=== PATIENT | female | born 1975 | race Caucasian/White ===

== ENCOUNTER 2021-10-26 09:10 | Outpatient (CLI) | payer OTHER, SELFPAY ==
--- NOTE | ~2021-10-26 | MM_ITS ---
EXAMINATION: MM screening [facility] BI w [facility]am[facility] HISTORY: Screening mammogram TECHNIQUE: Craniocaudal and mediolateral oblique 3-D tomosynthesis images were obtained and synthetic 2-D images were generated. CAD analysis was submitted and interpreted. COMPARISON: 08/29/2018 BREAST PARENCHYMAL COMPOSITION: There are scattered areas of fibroglandular density. FINDINGS: There is no evidence of suspicious mass, calcification, or architectural distortion to sugg est malignancy in either breast. There has been no suspicious interval change. IMPRESSION: 1. No mammographic evidence of malignancy. 2. Recommend routine screening mammography in one year. BI-RADS Category 1: Negative Reviewed, dictated and finalized at location A. EOLOGIST
== END 2021-10-26 09:11 | disposition home or self-care (01) ==
LOC: ANHIMG 09:12
PROVIDERS: PCP Family Medicine; Visit Provider Family Medicine
DX: Z12.31 Encounter for screening mammogram for malignant neoplasm of breast (principal)
CPT/HCPCS: 77063; 77067

== ENCOUNTER 2023-01-07 08:57 | Outpatient (CLI) | payer OTHER, SELFPAY ==
--- NOTE | ~2023-01-07 | MM_ITS ---
EXAMINATION: MM screening [facility] BI w yamilex HISTORY: Screening TECHNIQUE: Craniocaudal and mediolateral oblique 3-D tomosynthesis images were obtained and synthetic 2-D images were generated. CAD analysis was submitted and interpreted. COMPARISON: Comparison to multiple prior studies sequentially, with oldest reviewed study dated 06/2018. BREAST PARENCHYMAL COMPOSITION: There are scattered areas of fibroglandular density. FINDINGS: There is no evidence of suspicious mass, calcification, or architectural distortion to sugg est malignancy in either breast. There has been no suspicious interval change. IMPRESSION: 1. No mammographic evidence of malignancy. 2. Recommend routine screening mammography in one year. BI-RADS Category 1: Negative Reviewed, dictated and finalized at location A.
== END 2023-01-07 08:58 | disposition home or self-care (01) ==
LOC: ANHIMG 09:00
PROVIDERS: PCP Family Medicine; Visit Provider Family Medicine
DX: Z12.31 Encounter for screening mammogram for malignant neoplasm of breast (principal)
CPT/HCPCS: 77063; 77067

== ENCOUNTER 2023-02-20 16:09 | Outpatient (CLI) | payer OTHER, SELFPAY ==
[2023-02-20 18:56] LABS: Kit Draw Collected
== END 2023-02-20 16:10 | disposition home or self-care (01) ==
LOC: ANHGOSHLAB 16:11
PROVIDERS: PCP Family Medicine; Visit Provider Family Medicine
DX: K21.00 Gastro-esophageal reflux disease with esophagitis, without bleeding (principal); E55.9 Vitamin D deficiency, unspecified; Z79.899 Other long term (current) drug therapy
CPT/HCPCS: 36415

== ENCOUNTER 2023-06-06 01:26 | Day surgery (SDC) | payer OTHER, SELFPAY ==
[2023-05-24 15:05] VITALS: BMI 51.5
[2023-06-06 08:15] VITALS: BP 130/106; PULSE 99; RESP 18; TEMP 36.6; O2SAT 99; BMI 52.3
--- NOTE | 2023-06-06 08:24 | PM.HPGS ---
History of Present Illness History of Present Illness Consent: Risks, benefits, and alternatives have been discussed and questions answered. Patient agrees to proceed with procedure. Chief complaint: neoplasm screening Narrative: Tracie Orantes is a 48 year old female Presents for screening colonoscopy. Patient's current weight appetite and bowel movements are normal. She denies abdominal pain. She has had no bleeding. Family history is noncontributory. Review of Systems Review of Systems: Review of systems noncontributory. [facility] Past Medical History Medical History Iron deficiency anemia Neoplasm of uncertain behavior of skin Obesity Polyp of cervix uteri Family History Family History Father Depression Mother Patient's mother is in good health Osteoporosis Grandparent Family history of elevated blood lipids Family history of cardiovascular disease Cerebrovascular accident Osteoporosis Social History Social History Smoking status: Never smoker Alcohol intake: current Drinks per week: 5 Substance use: never Substance use type: does not use Lack of Transportation: No Lack of Food: Never True Current Housing: I Have Housing Concerned About Future Housing: No Difficulty Paying Gas/Electric Bills: No Difficulty Paying for Meds: No Currently Unemployed: No Education: Bachelor's Degree Difficulty w/ Childcare or Family Care: No Living arrangements: with family Spiritual care concerns: No Meds Home Medications and Allergies Home Medications Medication Instructions Recorded Confirmed Type omeprazole magnesium 20 mg 40 mg PO DAILY 04/18/22 06/06/23 History tablet,delayed release (Prilosec OTC) desogestrel-e.estradiol 0.15 1 tablet PO DAILY #84 tabs 11/22/22 06/06/23 Rx mg-0.02 mg(21)/e.estrad 0.01 mg(5) tablet (Greg (28)) spironolactone 50 mg tablet 50 mg PO QAM #90 tabs 11/29/22 06/06/23 Rx hydroxyzine pamoate 25 mg capsule 25 mg PO DAILY 02/20/23 06/06/23 History cholecalciferol (vitamin D3) 1,250 1,250 mcg PO WEEKLY #14 caps 02/21/23 06/06/23 Rx mcg (50,000 unit) capsule ascorbic acid (vitamin C) 500 mg 500 mg PO DAILY 05/24/23 06/06/23 History tablet (Vitamin C) metformin 500 mg tablet,extended 1,000 mg PO BID 05/24/23 06/06/23 History release 24 hr Allergies Allergy/AdvReac Type Severity Reaction Status Date / Time No Known Allergies Allergy Verified 06/06/23 08:13 Vital Signs Vital Signs - 24 hr 06/06/23 08:15 Temperature 97.8 F Pulse Rate 99 Respiratory Rate 18 Blood Pressure 130/106 H Pulse Oximetry 99 Oxygen Delivery Room Air Exam Narrative: Physical exam reveals patient be alert. Vital signs stable. HEENT exam is unremarkable. Patient is anicteric. Lungs are clear to auscultation and percussion. Heart is without murmur or extra sounds. Abdomen Is obese. bowel sounds are present soft nontender with no organomegaly. Digital external rectal exam is normal. Assessment and Plan Assessment and plan (1) Encounter for screening colonoscopy: Code(s): Z12.11 - Encounter for screening for malignant neoplasm of colon Status: Acute Assessment and Plan: Patient presents today for screening colonoscopy. She appears to be at average risk for colon polyps. Further recommendations may be given after endoscopy.
[2023-06-06] MEDS: LACTATED RINGERS 1,000 ML 150 ML IV CONT (08:31)
--- NOTE | 2023-06-06 08:48 | WPDANESEPPF ---
Anes - Initial Pre Proc Eval Procedure: Operation Date: 06/06/23 09:30 Proposed Procedures p Screening Colonoscopy - Woody Jacobsen MD Date/Time: 06/06/23 08:48 Surgeon: Woody Jacobsen MD Pre Op Diagnosis: neoplasm screening Patient Data Age: 48 Gender: F Height: 1.6 m Weight: 134 kg Last Vital Signs Temp 97.8 F 06/06/23 08:15 Pulse 99 06/06/23 08:15 Resp 18 06/06/23 08:15 BP 130/106 H 06/06/23 08:15 Pulse Ox 99 06/06/23 08:15 O2 Del Method Room Air 06/06/23 08:15 Allergies Allergy/AdvReac Type Severity Reaction Status Date / Time No Known Allergies Allergy Verified 06/06/23 08:13 Home Medications Medication Instructions Recorded Confirmed Type omeprazole magnesium 20 mg 40 mg PO DAILY 04/18/22 06/06/23 History tablet,delayed release (Prilosec OTC) desogestrel-e.estradiol 0.15 1 tablet PO DAILY #84 tabs 11/22/22 06/06/23 Rx mg-0.02 mg(21)/e.estrad 0.01 mg(5) tablet (Greg (28)) spironolactone 50 mg tablet 50 mg PO QAM #90 tabs 11/29/22 06/06/23 Rx hydroxyzine pamoate 25 mg capsule 25 mg PO DAILY 02/20/23 06/06/23 History cholecalciferol (vitamin D3) 1,250 1,250 mcg PO WEEKLY #14 caps 02/21/23 06/06/23 Rx mcg (50,000 unit) capsule ascorbic acid (vitamin C) 500 mg 500 mg PO DAILY 05/24/23 06/06/23 History tablet (Vitamin C) metformin 500 mg tablet,extended 1,000 mg PO BID 05/24/23 06/06/23 History release 24 hr Patient hx anesthesia problems: none Family hx anesthesia problems: none Results Review: All pre-operative results and documents have been reviewed as part of the pre-operative evaluation. [facility] Past Medical History Medical History Iron deficiency anemia Neoplasm of uncertain behavior of skin Obesity Polyp of cervix uteri Family History Family History Father Depression Mother Patient's mother is in good health Osteoporosis Grandparent Family history of elevated blood lipids Family history of cardiovascular disease Cerebrovascular accident Osteoporosis Social History Social History Smoking status: Never smoker Alcohol intake: current Drinks per week: 5 Substance use: never Substance use type: does not use Lack of Transportation: No Lack of Food: Never True Current Housing: I Have Housing Concerned About Future Housing: No Difficulty Paying Gas/Electric Bills: No Difficulty Paying for Meds: No Currently Unemployed: No Education: Bachelor's Degree Difficulty w/ Childcare or Family Care: No Living arrangements: with family Spiritual care concerns: No Anes - Eval Final PreProcedure Day of Procedure 06/06/23 08:48 Patient weight: super morbidly obese Heart: regular rate and rhythm Lungs: clear to auscultation Airway: Mallampati scale class II Neurological: alert and oriented Last oral intake: >/= 8 hours ASA classification: III Emergent: no Anesthetic plan: proceed Anesthesia type and monitoring: general GIVS and standard monitoring Results Review: All pre-operative results and documents have been reviewed as part of the pre-operative evaluation. Informed Consent: The patient's anesthetic plan and its attendant risks and benefits were discussed with the patient/family/POA. Questions were solicited and answers provided to the satisfaction of the patient/family/POA.
[2023-06-06] MEDS: SIMETHICONE ORAL SUSPENSION 20 MG/0.3 ML 30 ML BOTTLE 0.6 ML IRRIGATION (09:02)
[2023-06-06 09:10] VITALS: BP 126/89; PULSE 77; RESP 19; O2SAT 99
[2023-06-06 09:20] VITALS: BP 134/93; PULSE 73; RESP 18; O2SAT 99
[2023-06-06 09:30] VITALS: BP 141/89; PULSE 70; RESP 18; O2SAT 99
== END 2023-06-06 09:38 | disposition home or self-care (01) ==
PROVIDERS: PCP Family Medicine; Visit Provider Internal Medicine Gastroenterology
PROC: 0DJD8ZZ Inspection of Lower Intestinal Tract, Via Natural or Artificial Opening Endoscopic (ICD-10-PCS; CPT 45378; principal; 2023-06-06 09:30)
DX: Z12.11 Encounter for screening for malignant neoplasm of colon (principal); D12.2 Benign neoplasm of ascending colon; K64.8 Other hemorrhoids; E66.01 Morbid (severe) obesity due to excess calories; Z68.43 Body mass index [BMI] 50.0-59.9, adult
CPT/HCPCS: 45385; 88305; J7120

== ENCOUNTER 2024-01-30 14:25 | Outpatient (CLI) | payer BC, SELFPAY ==
--- NOTE | ~2024-01-30 | MM_ITS ---
EXAMINATION: MM screening [facility] BI w [facility]am[facility] HISTORY: Screening mammogram TECHNIQUE: Craniocaudal and mediolateral oblique 3-D tomosynthesis images were obtained and synthetic 2-D images were generated. CAD analysis was submitted and interpreted. COMPARISON: 01/07/2023, 10/26/2021 bilateral screening mammogram examinations BREAST PARENCHYMAL COMPOSITION: There are scattered areas of fibroglandular density. FINDINGS: There is no evidence of suspicious mass, calcification, or architectural distortion to sugg est malignancy in either breast. There has been no suspicious interval change. IMPRESSION: 1. No mammographic evidence of malignancy. 2. Recommend routine screening mammography in one year. BI-RADS Category 1: Negative Reviewed, dictated and finalized at location A.
== END 2024-01-30 14:26 | disposition home or self-care (01) ==
PROVIDERS: PCP Family Medicine; Visit Provider Obstetrics & Gynecology Gynecology
DX: Z12.31 Encounter for screening mammogram for malignant neoplasm of breast (principal)
CPT/HCPCS: 77063; 77067

== ENCOUNTER 2025-03-17 14:16 | Outpatient (CLI) | payer OTHER, SELFPAY ==
--- NOTE | ~2025-03-17 | MM_ITS ---
EXAMINATION: MM screening evan BI w yam[facility]x HISTORY: Screening TECHNIQUE: Craniocaudal and mediolateral oblique 3-D tomosynthesis images were obtained and synthetic 2-D images were generated. CAD analysis was submitted and interpreted. COMPARISON: Comparison to multiple prior studies sequentially, with oldest reviewed study dated 01/29. BREAST PARENCHYMAL COMPOSITION: Not dense: There are scattered areas of fibroglandular density. FINDINGS: There is no evidence of suspicious mass, calcification, or architectural distortion to sugg est malignancy in either breast. There has been no suspicious interval change. IMPRESSION: 1. No mammographic evidence of malignancy. 2. Recommend routine screening mammography in one year. BI-RADS Category 1: Negative Reviewed, dictated and finalized at location A.
--- OUTSIDE RECORDS SUMMARY | 2025-03-17 14:20 | XMS_ITS | Data Portability ---
Author Organization [employer] [facility] [place], Medical Address [address] [place] [id number] Care Team Providers Care Twenty One Dealer Name Role Phone BRADEN ZAPATA Primary Care Provider LANA MARTINES Cylinder Die Machine Helper [phone] Assessment Encounter Date Assessment Date Assessment LastModified by Organization Details LastModified Time 01/07/2025 01/07/2025 Plan to continue with Semaglutide at max dose of 90u. If weight loss does not progress as expected then we discussed potentially switching to Tirzepatide at next visit. [email or web address] Not available 01/07/2025 11:08:51 01/14/2025 01/14/2025 49 y/o F reports for [facility] nutrition session Hx of lipidema, Labs show How would you sum up your goal/why do you want to see a men's garment fitter? Was recently diagnosed with lipidema - wants answers and nothing has worked for her for a long period of time. Initial goal is losing maybe 10% of her body weight. Getting below 200. 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 10-12 yrs ago lost 25-35 lbs - felt like no matter what she did she couldnt lose more weight. Caffeine/Alc - drinks coffee - 1 to 2 cups, that is most of her caffeine but might have iced tea at lunch No soda, switches to water after coffee in the AM Interested in wine and studies it, likes it on the weekends Smoking/Drug Use - no Current Supps B12 Hydration - prob varies with intake but her water bottle is 32 oz and fills at least 2-3 times per day Exercise - in the past was in a better routine, just got back from a 2 week trip - vacation was active. Is used to doing 3-5 days per week and now is doing about 2 workouts per week - does kyree workouts, 20-35 mins, approachable, she really likes it - rec a strength, hiit and a sculpt workout (yoga, body weight) as a bare min every week (you can do more) - since perimenopause has been doing 2 strength and a hiit weekly. If she does it first thing in the AM she can knock it out but if she waits, she might not be able to get it in. Can do it in the basement. Does work out on an empty stomach Workout Recovery Nutrition - not at the moment Sleep Diet Recall Allergies/Aversi ons Non-negotiables Stress Relationship to Food and Body - grew up in a house with the [place] police - loves her mother but she has a bad relationship to food and everything is tiny portions, etc.. constant voice about how much to eat.. Took comfort in the past from stress and emotions. Her moms relationship to food has messed with her hunger and full cues. Her mom was always trying to lose a little bit of weight - in 80s and 90s.. they didnt know that much about nutrition - got on the fat free craze - snackwells, etc - hard to switch that narrative. Current relationship to food and body - enjoys cooking and entertaining, it's a part of their life - when they have friends over, go out, shes observant about what others do. Feels she eats the same amount as other people, doesnt really binge eat - is sure some times she could have a more balanced plate or portions could be smaller. Would love to be more comfy in her body, be healthier, have stamina back instead of not getting worn out so easily. Tracking? - has many times through [facility] - has been religion about it and half in half out - doesnt love tracking every single thing - gets tedious CGM? - Gloria has prescribed one - is freaked out by it Menopause - going through perimenopause now Gut Health/Stool 10/08 - a little constipated but overall doing really well Aiming for a min of 80 g protein. Last few weeks has been more in her routine movement and activity johnson - was doing 2 days a week previously, did a HIIT workout before coming to [place] today. Has been a little worried about holidays and routine - shes been out of her element but is doing great being more mindful about choices, protein, fiber. 11/13 - sent me some food logs - thinks in general she is doing pretty well. We went over the food logs, some swaps for protein bars - the number of cals she should be having in a day, etc. Usually she has under 1900 cals in a day even though that is what is in [facility]. Her hunger cues are not as strong as before, she is not fixated on eating at a certain time, etc. For workout doing 2 strength and 2 treadmill workouts a week, pilates or yoga. So about 5 workouts per week - it's an increase consistently from when she started the program, and is more disciplined about it Feels okay about her progress but it has been slower - she maitained over the holidays which feels like a success - it's slower. Increased up to 40 u 12/11 - Has not been as hard to focus on protein as she thought it would be. Has broken into the 290s - some related to being sick - didn't feel like eating much. Is now around 289-290.. 2 lbs down in a month or so. Gloria and her had talked about it.. had the conversation about how it isnt going to work for her and how that is a concern. Was having some issues w constipation, went from 65 to 75.. Gloria gave some tips on how to deal with constipation. Is in her head a bit because they have some travel coming up. We talked about the inner critic and her perfectionist tendencies, fears of not reaching her goals, etc. [email or web address] Not available 01/14/2025 16:17:20 02/04/2025 02/04/2025 Plan to continue with Semaglutide at max dose of 90u. If weight loss does not progress as expected then we discussed potentially switching to Tirzepatide at next visit. [email or web address] Not available 02/04/2025 17:11:55 02/18/2025 02/18/2025 49 y/o F reports for [facility] nutrition session Hx of lipidema, Labs show How would you sum up your goal/why do you want to see a men's garment fitter? Was recently diagnosed with lipidema - wants answers and nothing has worked for her for a long period of time. Initial goal is losing maybe 10% of her body weight. Getting below 200. 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 10-12 yrs ago lost 25-35 lbs - felt like no matter what she did she couldnt lose more weight. Caffeine/Alc - drinks coffee - 1 to 2 cups, that is most of her caffeine but might have iced tea at lunch No soda, switches to water after coffee in the AM Interested in wine and studies it, likes it on the weekends Smoking/Drug Use - no Current Supps B12 Hydration - prob varies with intake but her water bottle is 32 oz and fills at least 2-3 times per day Exercise - in the past was in a better routine, just got back from a 2 week trip - vacation was active. Is used to doing 3-5 days per week and now is doing about 2 workouts per week - does kyree workouts, 20-35 mins, approachable, she really likes it - rec a strength, hiit and a sculpt workout (yoga, body weight) as a bare min every week (you can do more) - since perimenopause has been doing 2 strength and a hiit weekly. If she does it first thing in the AM she can knock it out but if she waits, she might not be able to get it in. Can do it in the basement. Does work out on an empty stomach Workout Recovery Nutrition - not at the moment Sleep Diet Recall Allergies/Aversi ons Non-negotiables Stress Relationship to Food and Body - grew up in a house with the [place] police - loves her mother but she has a bad relationship to food and everything is tiny portions, etc.. constant voice about how much to eat.. Took comfort in the past from stress and emotions. Her moms relationship to food has messed with her hunger and full cues. Her mom was always trying to lose a little bit of weight - in 80s and 90s.. they didnt know that much about nutrition - got on the fat free craze - snackwells, etc - hard to switch that narrative. Current relationship to food and body - enjoys cooking and entertaining, it's a part of their life - when they have friends over, go out, shes observant about what others do. Feels she eats the same amount as other people, doesnt really binge eat - is sure some times she could have a more balanced plate or portions could be smaller. Would love to be more comfy in her body, be healthier, have stamina back instead of not getting worn out so easily. Tracking? - has many times through [facility] - has been religion about it and half in half out - doesnt love tracking every single thing - gets tedious CGM? - Gloria has prescribed one - is freaked out by it Menopause - going through perimenopause now Gut Health/Stool 10/08 - a little constipated but overall doing really well Aiming for a min of 80 g protein. Last few weeks has been more in her routine movement and activity johnson - was doing 2 days a week previously, did a HIIT workout before coming to [place] today. Has been a little worried about holidays and routine - shes been out of her element but is doing great being more mindful about choices, protein, fiber. 11/13 - sent me some food logs - thinks in general she is doing pretty well. We went over the food logs, some swaps for protein bars - the number of cals she should be having in a day, etc. Usually she has under 1900 cals in a day even though that is what is in [facility]. Her hunger cues are not as strong as before, she is not fixated on eating at a certain time, etc. For workout doing 2 strength and 2 treadmill workouts a week, pilates or yoga. So about 5 workouts per week - it's an increase consistently from when she started the program, and is more disciplined about it Feels okay about her progress but it has been slower - she maitained over the holidays which feels like a success - it's slower. Increased up to 40 u 12/11 - Has not been as hard to focus on protein as she thought it would be. Has broken into the 290s - some related to being sick - didn't feel like eating much. Is now around 289-290.. 2 lbs down in a month or so. Gloria and her had talked about it.. had the conversation about how it isnt going to work for her and how that is a concern. Was having some issues w constipation, went from 65 to 75.. Gloria gave some tips on how to deal with constipation. Is in her head a bit because they have some travel coming up. We talked about the inner critic and her perfectionist tendencies, fears of not reaching her goals, etc. 02/18 - Came back from her trip to [place] - her food intake has been pretty good, on the trip she didn't track anything but she's pretty consistently getting to 90 g per day. Started using Fibermend from [facility] to make sure she gets at least 20-25 g fiber daily, with the exception of a few days here and there is trying to keep carbs around 100 g daily.. Veggies are doing well too. Hydration - she could be a little better about that. She filled her water bottle this AM and it's still full, she's had only a couple sips.. she won't refill it til the evening. It is 32-40 oz bottle. Appetite - rare for her these days to be super hungry - she feels full faster but it also depends on what she's eating. With her recent travel has gotten back to having a glass of wine daily, etc.. Got a watch that makes it easier to count steps, has been monitoring her sleep - a single glass of wine does not affect her sleep, but more than that DOES. Shes been trying to keep accurately to a step goal so the watch is helping her monitor that. Pretty consistently doing at least 2 strength workouts per week, kyree - uses some resistance band work and then weights with deadlifts or curls.. 25-35 min each. [email or web address] Not available 02/18/2025 12:09:08 Plan of Treatment Reminders Order Date Submit Date Provider Last Modified By Organization Details Last Modified Time Details Appointments Program Nutritio n Visit 60 min 2024 08:00A M Lana Dougherty Not available Not available Not available Program Medical Visit (45 min) 2024 01:30P M Tracie Wagoner NP Not available Not available Not available Lab lipid panel, serum 2024 025 [facility], [address], [place], [address], 02/11/2025 04:08:06 CMP, serum or plasma 2024 025 [facility], [address], [place], [address], 02/11/2025 04:08:06 Referral None recorded . Procedures None recorded . Surgeries None recorded . Imaging None recorded . Medication Orders Compound ed Semaglut geovanni 2.65 mg/ml (5 ml vial) 2024 025 [facility] 23 [facility], [address], [place], [address], 02/05/2025 10:12:09 Patient Targets Encounter Date Encounter Id Patient Goals Patient Target Last Modified By Organization Details Last Modified Time Stop at 80% full - at least 1-2 x this week when convenient to try. What do you observe?[facility] [email or web address] Not available 01/14/2025 16:17:22 Stop at 80% full - at least 1-2 x this week when convenient to try. What do you observe?[facility] - stephany InfraredStart day with Hydration before you do the treadmill - min 64 ozKeep eye on wine intake for sleep quality [email or web address] Not available 02/18/2025 12:13:08 Patient Instructions Encounter Date Encounter Id Patient Instructions Last Modified By Organization Details Last Modified Time 01/07/[id number] Lifestyle recommendations: --aim for 8 hours of sleep -- eat three meals per day. Get 20-30 gm protein per meal. (20 gm of protein looks like meat, fish, chicken the size of a deck of cards or 3 TBSP nut butter or 1 cup of beans or 3 oz of /cheese or tofu or 3 eggs or 20 gm protein powder.) Aim for 3 veggie servings per meal (roughly 1/2 plate of veggies). Try to get 1 fat serving per meal (1tsp olive oil and coconut oil, 1/8 avocado). Get 2 fruits and 2 grain servings per day. Fast 12 hours starting after evening meal each day. Get 64 oz water per day. --practice regular prayer, meditation and yoga to relieve stress. Set up healthy boundaries. --get 150 min cardio per week (at least 10 minutes at a time) and strength training twice a week. --make sure cleaning products and personal care products are safe by running them through the search engine at [employer]. Desire for Weight Loss: --Increase Semaglutide 90u once weekly -- Glucose Hacks ( adapted from the book Glucose Revolution by Nimo) -Eat your food in the following order...veggies and greens, then fat and protein, then starches and sugars. -Start meals with a salad when possible. -Pay more attention to the glucose impact of a food than the total number of calories. -Eat a savory breakfast. -There is no good or bad sugar; all sugar is the same, regardless of the plant it comes from. That goes for table sugar, honey, agave syrup, and coconut sugar just to name a few. They are all made of glucose and fructose molecules. -If you need a sweetener choose Allulose, Monk fruit or Stevia (pure stevia extract). -Avoid Aspartame, Sucralose and Xylitol as they increase insulin and/or glucose levels. -The best time to eat something sweet is after you have eaten a meal with fat, protein and fiber. -Apple Cider Vinegar (ACV) on salad at the beginning of a meal or taken as one TBSP mixed in 8 ounces of water before eating lowers your post-meal glucose spike. -10-20 minutes of exercise after a meal lowers the glucose spike associated with the meal. -If you have to snack, choose savory snacks. -Try not to eat carbs all by themselves. Eat veggies, protein or fat first. -When eating packaged food keep the ratio of total carbohydrates to fiber at 5:1. Elevated Blood Pressure: --check BP at home in the morning before caffeine --goal of 130/80 or lower, if not meeting goal please discuss with PCP Constipation: --Add ColonX two at night --increase fiber, increase to at least 30g per day through food or additional supplementation --increase water intake, half your body weight in ounces of water daily is recommended, start by trying to hit 64oz daily and go up from there SUPPLEMENTS: --CONTINUE: PALM Multivitamin Metabolic Daily Probiotic collagen omega-3 fish oil creatine --START: ColonX two at night --STOP: none --CHANGE: FOLLOW UP: See [facility] providers as scheduled BCA and bloodwork due in February [email or web address] Not available 01/07/2025 11:09:22 01/14/2025 [id number] Aryan Hodges! Gerardo lopez for sending your food log - I think you are losing weight at a really good rate, so not to worry - we have room to grow with Semaglutide and if for some reason you plateau, we can always look at dairy intake and also perhaps a switch to Tirzepatide. But, for now I think you are doing awesome! Let's see how you do with some [facility], maybe dry brushing and castor oil packs - I am hopeful this will increase your rate of loss! I confirmed you do have 12 [facility] sessions with your program membership - infrared would be infrared sauna or Biomat :) Let's try this month to stop at 80% fullness at at least 1-2 meals per week, and see how it goes. Are you still hungry 20 min later? [email or web address] Not available 01/14/2025 16:18:00 Dairy Not available 01/14 15:56:46 02/04/[id number] Lifestyle recommendations: --aim for 8 hours of sleep -- eat three meals per day. Get 20-30 gm protein per meal. (20 gm of protein looks like meat, fish, chicken the size of a deck of cards or 3 TBSP nut butter or 1 cup of beans or 3 oz of /cheese or tofu or 3 eggs or 20 gm protein powder.) Aim for 3 veggie servings per meal (roughly 1/2 plate of veggies). Try to get 1 fat serving per meal (1tsp olive oil and coconut oil, 1/8 avocado). Get 2 fruits and 2 grain servings per day. Fast 12 hours starting after evening meal each day. Get 64 oz water per day. --practice regular prayer, meditation and yoga to relieve stress. Set up healthy boundaries. --get 150 min cardio per week (at least 10 minutes at a time) and strength training twice a week. --make sure cleaning products and personal care products are safe by running them through the search engine at [employer]. Desire for Weight Loss: --Increase Semaglutide 90u once weekly -- Glucose Hacks ( adapted from the book Glucose Revolution by Nimo) -Eat your food in the following order...veggies and greens, then fat and protein, then starches and sugars. -Start meals with a salad when possible. -Pay more attention to the glucose impact of a food than the total number of calories. -Eat a savory breakfast. -There is no good or bad sugar; all sugar is the same, regardless of the plant it comes from. That goes for table sugar, honey, agave syrup, and coconut sugar just to name a few. They are all made of glucose and fructose molecules. -If you need a sweetener choose Allulose, Monk fruit or Stevia (pure stevia extract). -Avoid Aspartame, Sucralose and Xylitol as they increase insulin and/or glucose levels. -The best time to eat something sweet is after you have eaten a meal with fat, protein and fiber. -Apple Cider Vinegar (ACV) on salad at the beginning of a meal or taken as one TBSP mixed in 8 ounces of water before eating lowers your post-meal glucose spike. -10-20 minutes of exercise after a meal lowers the glucose spike associated with the meal. -If you have to snack, choose savory snacks. -Try not to eat carbs all by themselves. Eat veggies, protein or fat first. -When eating packaged food keep the ratio of total carbohydrates to fiber at 5:1. Elevated Blood Pressure: --check BP at home in the morning before caffeine --goal of 130/80 or lower, if not meeting goal please discuss with PCP Constipation: --Add ColonX 1-2 at night --increase fiber, increase to at least 30g per day through food or additional supplementation --increase water intake, half your body weight in ounces of water daily is recommended, start by trying to hit 64oz daily and go up from there SUPPLEMENTS: --CONTINUE: PALM Multivitamin Metabolic Daily Probiotic collagen omega-3 fish oil creatine --START: ColonX two at night --STOP: none --CHANGE: FOLLOW UP: See Maged as scheduled BCA and bloodwork due in February [email or web address] Not available 02/04/2025 17:39:17 02/18/[id number] Luthersal RosadoTracie! Le t's really focus this time on keeping up your step goal, your continued strength training 2x per week for at least 25-30 min each session, and starting the day with your hydration BEFORE you start the day/go on the treadmill.. we are aiming for a min of 64 oz per day but I would love to see closer to 80 oz for you! :) Keep an eye on your wine intake and notice correlations on your watch with deep or REM sleep quality - if you feel it's a problem, stick to 1 glass per night. [email or web address] Not available 02/18/2025 12:19:34 Dairy [email or web address] Not available 02/18 11:22:53 03/09/[id number] Lifestyle recommendations: --aim for 8 hours of sleep -- eat three meals per day. Get 20-30 gm protein per meal. (20 gm of protein looks like meat, fish, chicken the size of a deck of cards or 3 TBSP nut butter or 1 cup of beans or 3 oz of /cheese or tofu or 3 eggs or 20 gm protein powder.) Aim for 3 veggie servings per meal (roughly 1/2 plate of veggies). Try to get 1 fat serving per meal (1tsp olive oil and coconut oil, 1/8 avocado). Get 2 fruits and 2 grain servings per day. Fast 12 hours starting after evening meal each day. Get 64 oz water per day. --practice regular prayer, meditation and yoga to relieve stress. Set up healthy boundaries. --get 150 min cardio per week (at least 10 minutes at a time) and strength training twice a week. --make sure cleaning products and personal care products are safe by running them through the search engine at [employer]. Desire for Weight Loss: -- Switch from semaglutide to tirzepatide. Start with 25 units *please send me a copy of your most recent labs: [email or web address] -- Glucose Hacks ( adapted from the book Glucose Revolution by Nimo) -Eat your food in the following order...veggies and greens, then fat and protein, then starches and sugars. -Start meals with a salad when possible. -Pay more attention to the glucose impact of a food than the total number of calories. -Eat a savory breakfast. -There is no good or bad sugar; all sugar is the same, regardless of the plant it comes from. That goes for table sugar, honey, agave syrup, and coconut sugar just to name a few. They are all made of glucose and fructose molecules. -If you need a sweetener choose Allulose, Monk fruit or Stevia (pure stevia extract). -Avoid Aspartame, Sucralose and Xylitol as they increase insulin and/or glucose levels. -The best time to eat something sweet is after you have eaten a meal with fat, protein and fiber. -Apple Cider Vinegar (ACV) on salad at the beginning of a meal or taken as one TBSP mixed in 8 ounces of water before eating lowers your post-meal glucose spike. -10-20 minutes of exercise after a meal lowers the glucose spike associated with the meal. -If you have to snack, choose savory snacks. -Try not to eat carbs all by themselves. Eat veggies, protein or fat first. -When eating packaged food keep the ratio of total carbohydrates to fiber at 5:1. Elevated Blood Pressure: --check BP at home in the morning before caffeine --goal of 130/80 or lower, if not meeting goal please discuss with PCP Constipation: --Add ColonX 1-2 at night --increase fiber, increase to at least 30g per day through food or additional supplementation --increase water intake, half your body weight in ounces of water daily is recommended, start by trying to hit 64oz daily and go up from there SUPPLEMENTS: --CONTINUE: PALM Multivitamin Metabolic Daily Probiotic collagen omega-3 fish oil creatine --START: ColonX two at night --STOP: none --CHANGE: FOLLOW UP: See Maged as scheduled [email or web address] Not available 03/09/2025 16:20:16 Reason for Referral None Reported. Results Created Date Observation Date Name Description Value Unit Range Abnormal Flag Note LastModifiedBy Organization Detail LastModifiedTime Result Notes None recorded. 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 Procedures Surgical History Date Name Laterality Status Provider Name and Address Organization Details Recorded Time 5 Blood Draw completed Figueroa [address], [place], [address], [employer] 12/10/2024 14:08:38 4 Date of Last Pap Smear completed [facility] 08/18/2024 09:02:39 4 Date of Last Mammogram completed [facility] 08/18/2024 09:02:39 Other completed [facility] 08/18/2024 09:02:57 Mammogram completed [facility] 08/18/2024 09:02:57 Colonoscopy completed [facility] 08/18/2024 09:02:57 Imaging Results None recorded. Procedure Notes None recorded. Medical Equipment None Reported. Allergies No known drug allergies Medications Name Sig Start Date Stop Date Status Note LastModified by Organization Details LastModified Time Compounded Semaglutide 2.65 mg/ml (5 ml vial) titrate as directed injecting subQ Weekly 2023 active Not Available Not Available Not Avai lable Compounded Tirzepatide 10 mg with levocarniti ne Inject 25 to 150 units subcutane ously once weekly as directed by medical provider (compound ed formulati on to avoid sideeffec ts) 2024 active Not Available Not Available Not Avai lable Compounded Semaglutide 2.65 mg/ml (5 ml vial) titrate as directed injecting subQ Weekly 2024 active Not Available Not Available Not Avai lable Compounded Semaglutide 2.65 mg/ml (5 ml vial) titrate as directed injecting subQ Weekly 2024 active Not Available Not Available Not Avai lable levocarniti ne and semaglutide 100,2.65mg/ ml #[id number] TITRATE DIRECTED INJECTING SUBQ WEEKLY 12/03 completed Not Available Not Available Not Available Insulin Syringe 0.5 ml (29 to 31 gauge needle) Inject compounde d medicatio n subQ weekly 2023 active Not Available Not Available Not Avai lable Compounded Semaglutide 2.65 mg/ml (5 ml vial) titrate as directed injecting subQ Weekly 2023 active Not Available Not Available Not Avai lable Compounded Semaglutide 2.65 mg/ml (5 ml vial) titrate as directed injecting subQ Weekly 2024 active Not Available Not Available Not Avai lable Insulin Syringe 0.5 ml (29 to 31 gauge needle) Inject compounde d medicatio n subQ weekly 2024 active Not Available Not Available Not Avai lable Compounded Semaglutide 2.65 mg/ml (5 ml vial) titrate as directed injecting subQ Weekly 2024 active Not Available Not Available Not Avai lable metformin 500 mg tablet Take 1 tablet twice a day by oral route. 09/08 completed Not Available Not Available Not Available estradiol 0.075 mg/24 hr semiweekly transdermal patch APPLY 1 PATCH TOPICALLY TO THE SKIN 2 TIMES A WEEK active Not Available Not Available No t Available omeprazole 40 mg capsule,del ayed release Take 1 capsule every day by oral route. active Not Available Not Available No t Available spironolact one 50 mg tablet TAKE 1 TABLET BY MOUTH EVERY MORNING active Not Available Not Available No t Available hydroxyzine pamoate 25 mg capsule TAKE 1 CAPSULE BY MOUTH EVERY DAY active Not Available Not Available No t Available cholecalcif satish (vitamin D3) 1,250 mcg (50,000 unit) capsule TAKE ONE CAPSULE BY MOUTH WEEKLY 08/18 completed Not Available Not Available Not Available compounded medication as directed per LIVESTOCK SLAUGHTERER 01/07 completed Not Available Not Available Not Available compounded medication as directed by LIVESTOCK SLAUGHTERER 01/07 completed Not Available Not Available Not Available compounded medication one once daily per outside ULTRASOUND MANAGER 01/07 completed Not Available Not Available Not Available Viorele (28) 0.15 mg-0.02 mg (21)/0.01 mg (5) tablet TAKE 1 TABLET BY MOUTH DAILY 01/07 completed Not Available Not Available Not Available [employer] 14 Day Sensor kit APPLY 1 SENSOR TO SKIN FOR 2 WEEKS FOR CONTINUOU S GLUCOSE MONITORIN G 09/05 completed Not Available Not Available Not Available Slynd 4 mg (28) tablet Take 1 tablet every day by oral route. active Not Available Not Available No t Available Vitals Date Recorded Body height Heart rate Oxygen saturation Oxygen saturation in Arterial blood by Pulse oximetry Body mass index (BMI) Body weight Body temperature Systolic blood pressure Diastolic blood pressure Systolic blood pressure Diastolic blood pressure Provider Name and Address Organization Details Last Updated DateTime 158.75 cm 87 /min 97 % 97 % 52.3 kg/m2 195959. 22 g 98.4 [degF] 144 mm[Hg] 100 mm[Hg] 128 mm[Hg] 85 mm[Hg] [facility] [employer] 10:09:24 Date Recorded Body height Body mass index (BMI) Body weight Provider Name and Address Organization Details Last Updated DateTime 02/04/2025 158.75 cm 51.9 kg/m2 079401.4 g Tracie Wagoner, ULTRASOUND MANAGER [address], [place], [address], [employer] 02/04/2025 17:16:05 Date Recorded Body mass index (BMI) Body weight Provider Name and Address Organization Details Last Updated DateTime 03/09/2025 51.8 kg/m2 080810.6 g Tracie Wagoner, JOSE [address] , [place], [address], [employer] 03/09/2025 12:39:11 Date Recorded Body height Body temperature Heart rate Oxygen saturation Oxygen saturation in Arterial blood by Pulse oximetry Systolic blood pressure Diastolic blood pressure Provider Name and Address Organization Details Last Updated DateTime 158.75 cm 98.5 [degF] 89 /min 96 % 96 % 145 mm[Hg] 103 mm[Hg] Brittni Davisley [employer] 12:16:27 Social History Question Answer Notes LastModified by Organizat ion Details LastModified Time Tobacco Smoking Status Never Smoker Brittni Harris [facility] [employer] 08/18/2024 09:02:51 Have There Been Any Changes To Your Family Or Social Situation? No Information not available 08/18/2024 How Many Children Do You Have? 0 Information not available 08/18/2024 Do You Have Any Pets? Yes Information not available 08/18/2024 Do You Have Any Siblings? No Information not available 08/18/2024 Are There Any Smokers In Your House? No Information not available 08/18/2024 Sex: Unknown Functional Status Question Answer Note LastModified by Organization D etails LastModified Time What is your level of alcohol consumption? Moderate Information not available 08/18/2024 Mental Status None recorded. Family History Relationship Description Onset Age of this Age Resolved Age Notes LastModified by Organization Details LastModified Time Maternal Grandmother Dementia Not available 09:02:33 Medical History Condition Response Dental Visits 2x/year Y Antibiotic Use as Adult Y Obesity Y High Blood Pressure Y High Cholesterol Y Gerd/Reflux Y Headache/Migraine Y Retainer Y Braces Y Acne Y Gynecological History Statement/Question Response N HRT Progesterone Date of Last Mammogram 01/30/2024 Breast Tenderness, water retention, irri tability with 2nd half of cycle N Did the pill agree with patient Y Date of Last Pap Smear 03/19/2024 Age at Menarche 11 Current Control Method BCPs control pills Y Hormone Replacement Therapy Y Obstetrics History GPAL:G 0 P 0 0 0 0 Past Encounters Encounter ID Performer Location Encounter Start Date Encounter Closed Date Diagnosis/Indication Diagnosis SNOMED-CT Code Diagnosis ICD10 Code Diagnosis Note [id number] [address] [address] 08/11/2024 17:52:28 08/28/2024 11:48:[id number] [address] 08/18/2024 10:22:12 08/19/2024 12:36:31 Obesity 123326272 E66.9 [id number] [place] [id number] 4 08/21/2024 08:32:02 08/21/2024 11:16:46 [id number] Tracie Wagoner NP [address] [address] 09/04/2024 10:29:46 09/08/2024 14:29:17 Obesity 991949495 E66.9 Prediabetes 110938826 R7 3.03 [id number] Kristi Bunch MD [address] [address] 09/08/2024 08:51:15 09/09/2024 15:54:31 Obesity 162787232 E66.9 Perimenopa usal disorder 222305850 N95.9 Acne 32821313 L70.9 Gastroesop hageal reflux disease 659233926 K21.9 Insomnia 246645784 G47.0 0 [id number] [place] [id number] 10/01/2024 10:14:17 10/02/2024 12:19:38 Obesity 953033708 E66.9 Increased blood pressure 10762457 R03.[id number] [address] 10/08/2024 11:00:54 10/08/2024 13:02:[id number] [address] 11/05/2024 10:20:47 11/06/2024 13:13:01 Obesity 692539775 E66.9 Increased blood pressure 69605860 R03.[id number] [address] 11/13/2024 11:04:30 11/13/2024 13:37:[id number] [address] 12/03/2024 10:55:33 12/03/2024 12:41:16 Obesity 318638158 E66.9 Increased blood pressure 33022706 R03.[id number] [address] 12/04/2024 09:32:02 12/05/2024 03:54:[id number] [address] 12/11/2024 11:02:16 12/11/2024 11:49:[id number] [address] 01/07/2025 09:54:20 01/08/2025 14:30:45 Obesity 432485101 E66.9 Increased blood pressure 90394601 R03.[id number] [address] 01/14/2025 15:21:01 01/14/2025 16:18:07 [id number] Tracie Wagoner NP [address] [address] 02/04/2025 17:11:13 02/05/2025 10:53:54 Obesity 847139278 E66.9 Increased blood pressure 33520183 R03.[id number] [address] 02/18/2025 11:22:27 02/18/2025 12:19:41 [id number] Tracie Wagoner NP [address] [address] 03/09/2025 11:52:45 03/10/2025 12:47:12 Health Concerns Section Related Observation LastModified by Organization Detai ls LastModified Time None Recorded Concern Status LastModified by Organization Details LastModified Time None Recorded Advance Directives Directive None Recorded Payers Encounter Date Sequence Insurance Name Policy Number Policy Whitfield Covered Member ID Whitfield Member ID Guarantor Name 01/07/2025 1 [facility] [id number] Tracie Orantes [id number] Tracie Orantes 01/14/2025 1 [facility] [id number] Tracie Orantes [id number] Tracie Orantes 02/04/2025 1 [facility] [id number] Tracie Orantes [id number] Tracie Orantes 02/18/2025 1 [facility] [id number] Tracie Orantes [id number] Tracie Orantes 03/09/2025 1 [facility] [id number] Tracie Orantes [id number] Tracie Orantes Notes Date Note Type Note Provider Name and Address Organization Details Recorded Time 01/07/2025 text/html *Occupation: [employer] (works from home 3-4 days a week)PCP: CLARA GilliamN: Dr. Indra Macario TODAY: 49 y/o female presents for L follow up. She is having more constipation issues since going up to 66u. She is having a bowel movement about every other day and when she does the amount of more significant. She often has the feeling of needing to go but can't. She isn't getting hunger cues as often, especially at lunch. If she has fat/protein in the morning then she doing get hungry for lunch as much. When she eats at home she has good control over what she eats and easily tracks her macros. When she is eating out she feels less controlled but has noted that overall she is eating less quantity. She has been very diligent about tracking her macros on MFP and isn't losing the weight as she would expect. There is only one meal a week that she doesn't track a week. She has overall increased her exercise since starting the program. She had a large weight loss the month before this one which she thinks may have been due to illness and then slowed this month-wondering if the average loss between the two months is a better reflection of monthly weight loss. Despite slow change on the scale this month she can tell her body composition is changing. She was able to get into a smaller pair of jeans recently. She is traveling for work twice this coming month and is worried about how this will effect her routine. She saw new OBGYn who changed hormones and feels more energetic and motivated. Switched meds about three weeks ago from compounded to Estradiol patch and SLYND. Med: SemaglutideStarted on: 09/04/24Current dose: 66uDate of last increase: 12/03/24 Current Weight: 290lbStart weight: 306lbGoal weight: loss 10% body weight, then under 200lb Side effects:-endorses: constipation-denies: abdominal pain, nausea, vomiting, diarrhea, GERD, lump in throat Complication of medication use: none Story: 49 y/o female presents for initial L visit.She didn't struggle with weight when she was young. Grew up with the food police- don't eat this or too much of this because it will make you fat. Her dad had a lot of issues with weight (she doesn't speak to him anymore) and she feels like she has done everything she can to not be like him except her weight. Last time at goal weight was in college. Once she was on her own and didn't have someone monitoring her diet she slowly gained weight due to poor diet and lack of physical activity- Sitting all day at work, eating out for lunch. Slow weight increase since then. With previous weight loss programs (WW, [facility]BERT), does very well the first couple weeks and then has no weight movement. 9816-6470 lost 30lb through very strict diet and exercisin1651-8767 calories a day and 1 hour of exercise a day. She got down to 230lb at that time. She had a big job change in early 2016 and s when she gained the last 25lb. This was a very stressful time frame over 9 months. Also effected her 's job. So both of them were very stressed and coped through food and drink. 2020 developed bad habits through COVID with food and alcohol. Recently diagnosed with lymphedema. Her doctor did prescribe Metformin to help with weight loss starting January. She is not taking it every day because she has a hard time remembering to take it. Is taking other meds. She has not noticed any benefit or side effects. Struggles with the idea of 8-10k steps per day.She does 2 strength training a week (25-40 minutes) and one HIIT workout (20-25 minutes). Sometimes 2-3 walks a week, not great with this recently. She uses Shalini Vinayakwili ([employer]) She is a materials planner/production planner. Likes to workout in the morning and if she doesn't do it in the morning then unlikely to workout that day. Struggles when she goes out to eat to evaluate a menu- what is good or not good. 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 Hx:--Weight loss Attempts in the past:Phentermine around Weight WatchersJelashae Simms Baseline GUT:Nausea: noVomiting: noLump in throat: noGERD: Yes, very rarely with acidic foodsDiarrhea: yes, sometimes with eating outConstipation: no Chronic Medical Conditions:Acne:Tx: SpironolactoneSx: new with perimenopause symptoms GERDTx: Omeprazole 40mgSx: HypertensionTx: spironolactoneSx: None, states BP always elevated when at the doctor, doesn't check at home but does have BP cuff High CholesterolTx: started with perimenopauseSx: Insomnia due to Perimenopause:Tx: hydroxyzineSx: sleeps well with hydroxyzine LIVESTOCK SLAUGHTERER:Hx: PerimenopauseTx: OCP, compounded progesterone, testosterone creamSx: LIFESTYLE:ETOH: moderate, 4-6/week, wineDrugs: noTobacco: noDietB- protein shake or protein muffins ([place] cake muffin recipe)L- leftovers from dinner, out for work lunch// roasted vegetable/quinoa with rotisserie chicken, soupD- roasted vegetable/quinoa with rotisserie chicken, soupExercise: strength training 2x/week (25-40 minutes) and walking 3x/week 35 minutes (does workout on the treadmill, variable speeds and inclines)Sleep: no KENNETH h/o, decent, 7-8.5 hours, occasionally wakes up to use the bathroom, hydroxyzine 25mg, easier to fall back to sleep when she does wake up in the middle of the nightStress Management: 04/29, read, movies, wine Gloria Padnya [address], [place], [address], [employer] [facility] 01/07/2025 11:09:30 02/04/2025 text/html *Occupation: [employer] (works from home 3-4 days a week)PCP: Margarette Gonzalez NPGYN: Dr. Indra Macario TODAY: 49 y/o female presents for MWL follow up. Has been traveling the past 2 weeks, eating out more than usual. One was a conference for work and meals were prepared. Second trip was leisure so was able to keep the food moderate. The past few days has been home so starting to see a decrease in the number. Exercise: got lots of steps at the conference and was walking while in [facility]. Continuing strength training consistently She went up to 90u and started colon X which has really helped her constipation. She was able to have consistent bowel movements on vacations which is a huge improvement. She isn't getting hunger cues as often, especially at lunch. If she has fat/protein in the morning then she doing get hungry for lunch as much. Still tracking her macros on MFP and isn't losing the weight as she would expect. There is only one meal a week that she doesn't track a week. She has overall increased her exercise since starting the program. She had a large weight loss the month before this one which she thinks may have been due to illness and then slowed this month-wondering if the average loss between the two months is a better reflection of monthly weight loss. Despite slow change on the scale this month she can tell her body composition is changing. She was able to get into a smaller pair of jeans recently. She saw new OBGYn who changed hormones last month and feels more like herself - more energy, able to walk briskly through [facility] without getting short of breath. Med: SemaglutideStarted on: 09/04/24Current dose: 90uDate of last increase: 01/19/25 Current Weight: 290lbStart weight: 306lbGoal weight: loss 10% body weight, then under 200lb Side effects:-endorses: constipation-denies: abdominal pain, nausea, vomiting, diarrhea, GERD, lump in throat Complication of medication use: none Story: 49 y/o female presents for initial [facility] visit.She didn't struggle with weight when she was young. Grew up with the food police- don't eat this or too much of this because it will make you fat. Her dad had a lot of issues with weight (she doesn't speak to him anymore) and she feels like she has done everything she can to not be like him except her weight. Last time at goal weight was in college. Once she was on her own and didn't have someone monitoring her diet she slowly gained weight due to poor diet and lack of physical activity- Sitting all day at work, eating out for lunch. Slow weight increase since then. With previous weight loss programs (WW, [facility]), does very well the first couple weeks and then has no weight movement. 0973-0399 lost 30lb through very strict diet and exercisin3866-2564 calories a day and 1 hour of exercise a day. She got down to 230lb at that time. She had a big job change in early 2016 and thats when she gained the last 25lb. This was a very stressful time frame over 9 months. Also effected her 's job. So both of them were very stressed and coped through food and drink. 2020 developed bad habits through COVID with food and alcohol. Recently diagnosed with lymphedema. Her doctor did prescribe Metformin to help with weight loss starting January. She is not taking it every day because she has a hard time remembering to take it. Is taking other meds. She has not noticed any benefit or side effects. Struggles with the idea of 8-10k steps per day.She does 2 strength training a week (25-40 minutes) and one HIIT workout (20-25 minutes). Sometimes 2-3 walks a week, not great with this recently. She uses Shalini Danny ([employer] Shal[employer]) She is a materials planner/production planner. Likes to workout in the morning and if she doesn't do it in the morning then unlikely to workout that day. Struggles when she goes out to eat to evaluate a menu- what is good or not good. 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 Hx:--Weight loss Attempts in the past:Phentermine around Weight WatchersTricia Simms Baseline GUT:Nausea: noVomiting: noLump in throat: noGERD: Yes, very rarely with acidic foodsDiarrhea: yes, sometimes with eating outConstipation: no Chronic Medical Conditions:Acne:Tx: SpironolactoneSx: new with perimenopause symptoms GERDTx: Omeprazole 40mgSx: HypertensionTx: spironolactoneSx: None, states BP always elevated when at the doctor, doesn't check at home but does have BP cuff High CholesterolTx: started with perimenopauseSx: Insomnia due to Perimenopause:Tx: hydroxyzineSx: sleeps well with hydroxyzine LIVESTOCK SLAUGHTERER:Hx: PerimenopauseTx: OCP, compounded progesterone, testosterone creamSx: LIFESTYLE:ETOH: moderate, 4-6/week, wineDrugs: noTobacco: noDietB- protein shake or protein muffins ([employer] cake muffin recipe)L- leftovers from dinner, out for work lunch// roasted vegetable/quinoa with rotisserie chicken, soupD- roasted vegetable/quinoa with rotisserie chicken, soupExercise: strength training 2x/week (25-40 minutes) and walking 3x/week 35 minutes (does workout on the treadmill, variable speeds and inclines)Sleep: no KENNETH h/o, decent, 7-8.5 hours, occasionally wakes up to use the bathroom, hydroxyzine 25mg, easier to fall back to sleep when she does wake up in the middle of the nightStress Management: 04/29, read, movies, wine Tracie Wagoner, JOSE [address] , [place], [address], [facility] [employer] 02/05/2025 10:13:03 03/09/2025 text/html *Occupation: [employer] (works from home 3-4 days a week)PCP: CLARA GilliamN: Dr. Indra Macario TODAY: 49 y/o female presents for MWL follow up. She feels she has plateaued and not noticing as big of a difference in appetite on semaglutide, so we decided to switch to OBGYN put her on estradiol patch and SLYND (mini pill) and has noticed a huge improvement in energy, but she is feeling frustrated that there hasn't been more weight loss. She does recognize that the extra travel has influenced suboptimal weight loss. Has been traveling the past 2 weeks, eating out more than usual. One was a conference for work and meals were prepared. Second trip was leisure so was able to keep the food moderate. The past few days has been home so starting to see a decrease in the number. She is being consistent with exercise - 6-8,000 steps per day and strength training consistently 2-3 times per week. Uses an kyree that does a combination of pilates, resistance bands and Despite slow change on the scale she notices a difference in her body. Friends and notice a difference in her body shape. Recently had labs completed by Dr. Silveira Med: SWITCHING to TirzepatideStarted on: 09/04/24Current dose: 25uPAST dose: was 90u semaDate of last increase: 01/19/25 Current Weight: 290lbStart weight: 306lbGoal weight: loss 10% body weight, then under 200lb Side effects:-endorses: constipation-denies: abdominal pain, nausea, vomiting, diarrhea, GERD, lump in throat Complication of medication use: none Story: 49 y/o female presents for initial MWL visit.She didn't struggle with weight when she was young. Grew up with the food police- don't eat this or too much of this because it will make you fat. Her dad had a lot of issues with weight (she doesn't speak to him anymore) and she feels like she has done everything she can to not be like him except her weight. Last time at goal weight was in college. Once she was on her own and didn't have someone monitoring her diet she slowly gained weight due to poor diet and lack of physical activity- Sitting all day at work, eating out for lunch. Slow weight increase since then. With previous weight loss programs (WW, [facility]BERT), does very well the first couple weeks and then has no weight movement. 6622-2230 lost 30lb through very strict diet and [id number] calories a day and 1 hour of exercise a day. She got down to 230lb at that time. She had a big job change in early 2016 and thats when she gained the last 25lb. This was a very stressful time frame over 9 months. Also effected her 's job. So both of them were very stressed and coped through food and drink. 2020 developed bad habits through COVID with food and alcohol. Recently diagnosed with lymphedema. Her doctor did prescribe Metformin to help with weight loss starting January. She is not taking it every day because she has a hard time remembering to take it. Is taking other meds. She has not noticed any benefit or side effects. Struggles with the idea of 8-10k steps per day.She does 2 strength training a week (25-40 minutes) and one HIIT workout (20-25 minutes). Sometimes 2-3 walks a week, not great with this recently. She uses Sh[employer] ([employer]) She is a materials planner/production planner. Likes to workout in the morning and if she doesn't do it in the morning then unlikely to workout that day. Struggles when she goes out to eat to evaluate a menu- what is good or not good. 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 Hx:--Weight loss Attempts in the past:Phentermine around Weight WatchersTricia Simms Baseline GUT:Nausea: noVomiting: noLump in throat: noGERD: Yes, very rarely with acidic foodsDiarrhea: yes, sometimes with eating outConstipation: no Chronic Medical Conditions:Acne:Tx: SpironolactoneSx: new with perimenopause symptoms GERDTx: Omeprazole 40mgSx: HypertensionTx: spironolactoneSx: None, states BP always elevated when at the doctor, doesn't check at home but does have BP cuff High CholesterolTx: started with perimenopauseSx: Insomnia due to Perimenopause:Tx: hydroxyzineSx: sleeps well with hydroxyzine LIVESTOCK SLAUGHTERER:Hx: PerimenopauseTx: OCP, compounded progesterone, testosterone creamSx: LIFESTYLE:ETOH: moderate, 4-6/week, wineDrugs: noTobacco: noDietB- protein shake or protein muffins ([place] cake muffin recipe)L- leftovers from dinner, out for work lunch// roasted vegetable/quinoa with rotisserie chicken, soupD- roasted vegetable/quinoa with rotisserie chicken, soupExercise: strength training 2x/week (25-40 minutes) and walking 3x/week 35 minutes (does workout on the treadmill, variable speeds and inclines)Sleep: no KENNETH h/o, decent, 7-8.5 hours, occasionally wakes up to use the bathroom, hydroxyzine 25mg, easier to fall back to sleep when she does wake up in the middle of the nightStress Management: 04/29, read, movies, wine Tracie Wagoner, ULTRASOUND MANAGER [address] , [place], [address], [facility] 03/09/2025 16:20:34 OBGyn Episode No OBEpisode recorded.
--- OUTSIDE RECORDS SUMMARY | 2025-03-17 14:20 | XMS_ITS | Clinical Summary ---
Author Organization [facility] Address [address] [place] [address] Care Team Providers Care Plating Engineer Name Role Phone Faviola Cervantes MD Primary Care Provider [phone] Source Comments [facility],non-owned Affiliates and Associated Physician Practices is amultiple site organization consisting of ambulatory clinics and hospital sitesin [place], [place], [place] and [place]. This disclosure is being madepursuant to the Care Everywhere program and may not contain all information available regarding this patient. Last updated 18.[facility] Allergies No known active allergies Medications * Be aware that medications may not be up to date on this document. Alwaysverify current medications with the patient. 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 Gender Identity Not on file Sexual Orientation Not on file Last Filed Vital Signs Vital Sign Reading Time Taken Comments Blood Pressure 128/76 08/31/2016 10:43 AM INFORMATION SYSTEMS PROFESSOR Pulse 87 08/31/2016 10:43 AM INFORMATION SYSTEMS PROFESSOR Temperature 36.9 C (98.5 F) 08/31/2016 10:43 AM INFORMATION SYSTEMS PROFESSOR Respiratory Rate 16 08/31/2016 10:43 AM INFORMATION SYSTEMS PROFESSOR Oxygen Saturation 98% 08/31/2016 10:43 AM INFORMATION SYSTEMS PROFESSOR Inhaled Oxygen Concentration - - Weight 93 kg (205 lb) 08/31/2016 10:43 AM INFORMATION SYSTEMS PROFESSOR Height 160 cm (5' 3) 08/31/2016 10:43 AM INFORMATION SYSTEMS PROFESSOR Body Mass Index 36.31 08/31/2016 10:43 AM INFORMATION SYSTEMS PROFESSOR Plan of Treatment Health Maintenance Due Date Last Done Comments COLOGUARD (AGES 45-75) - COL ON CA SCREENING 1977 COLON MONITORING 1977 COLONOSCOPY - COLON CA SCREENING 1977 CT COLONOGRAPHY - COLON CA SCREENING 1977 Colorectal Cancer Screening 1977 FIT - COLON CA SCREENING 1977 FLEX SIG - COLON CA SCREENING 1977 LIPID TESTING 1977 MAMMOGRAM 1977 PAP SMEAR 1977 HIV SCREENING 1992 HEPATITIS C SCREENING 05/28/1995 DTAP/TDAP/TD VACCINES (1 - Tdap) 1996 HEPATITIS B VACCINE (1 of 3 - 19+ 3-dose series) 1996 COVID-19 VACCINE ( - 2023-2 5 season) 2024 DEPRESSION SCREENING 10/21/2024 INFLUENZA VACCINE (Season Ended) 2025 ZOSTER VACCINE (1 of 2) 2027 HIB VACCINE Aged Out No longer eligi ble based on patient's age to complete this topic HPV VACCINE Aged Out No longer eligi ble based on patient's age to complete this topic MENINGOCOCCAL (Group B) VACC INE SHARED DECISION-MAKING Aged Out No longer eligibl e based on patient's age to complete this topic MENINGOCOCCAL GROUPS A/C/Y/W VACCINE Aged Out No longer eligible b ased on patient's age to complete this topic PNEUMOCOCCAL VACCINE Aged Out No long er eligible based on patient's age to complete this topic Insurance AN[employer]OH [employer] CIGNA Care Teams Plating Engineer Relationship Specialty Start Date End Date Faviola Cervantes MD [address] [place] [address] PCP - General Family Medicine 08/31/16
== END 2025-03-17 14:17 | disposition home or self-care (01) ==
LOC: ANHIMG 14:19
PROVIDERS: PCP Internal Medicine; Visit Provider Nurse Practitioner
DX: Z12.31 Encounter for screening mammogram for malignant neoplasm of breast (principal)
CPT/HCPCS: 77063; 77067